=== PATIENT | female | born 1980 | race Hispanic/Latino ===

== ENCOUNTER 2024-02-12 10:59 | Emergency (ER) | payer BC ==
[2024-02-12] MEDS ORDERED: DIPHENHYDRAMINE 50 MG/ML VIAL ONE (11:43)
[2024-02-12] MEDS ORDERED: METOCLOPRAMIDE 10 MG/2mL INJ ONE (11:43)
[2024-02-12] MEDS ORDERED: NA CHLORIDE 0.9% 500 ML ONE (11:43)
[2024-02-12 12:10] LABS: Absolute Monocytes 0.5 K/uL (0.1-1.3); Absolute Neutrophil 7.9 K/uL (1.8-8.0); Basophils % 0.3 % (0-1.3); Eosinophils % 0.4 % (0-4.4); Hematocrit 35.9 % (36.0-45.0); Hemoglobin 11.7 g/dL (12.0-15.0); Lymphocytes % 10.9 % (15.3-44.8); MCHC 32.6 g/dL (32.0-36.0); MCV 79.7 fL (80-100); MPV 7.3 fL (7.6-11.3); Monocytes % 5.7 % (3.3-12.3); Neutrophils % 82.7 % (41.7-73.7); Platelets 322 thou/uL (152-406); Red Cell Distribution Width 15.9 % (12.1-15.2)
[2024-02-12 12:27] LABS: Anion Gap 8.9 mEq/L (5.0-15.0); BUN Blood Urea Nitrogen 11 mg/dL (7-18); Bicarbonate 26 mEq/L (21-32); Glomerular Filtration Rate 81 ml/min (=/>90); Glucose Level 113 mg/dL (74-106); Potassium 3.9 mEq/L (3.5-5.1); Sodium Level 139 mEq/L (136-145)
[2024-02-12 12:28] LABS: Troponin High Sensitivity < 3.0 pg/mL (<58.9)
--- NOTE | 2024-02-12 12:51 | EDPHYS ---
Physician Documentation [facility] Name: Valentina Rendon Age: 43 yrs Sex: Female : 1980 Arrival Date: 02/12/2024 Time: 10:59 Bed 19 Private MD: ED Physician Tera Junior HPI: 02/11 11:56 This 43 yrs old Unknown Female presents to ER via Ambulatory with complaints of ec2 Dizziness, Nausea. 11:56 Patient arrives today for several days of dizziness. Patient reports that she has been ec2 experiencing vertigo, history of vertigo, has been taking meclizine with minimal improvement in symptoms. Patient reports of associated nausea as well. No falls injuries or trauma. No significant medical problems.. 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 - Infectious Disease History:: Denies. - Social history:: Smoking status: unknown. ROS: 11:56 Constitutional: as per hpi ec2 Exam: 11:56 Constitutional: GEN: NAD Head: atraumatic Eyes: EOMI Ears: External ears are ec2 normal. CV: regular rate LUNGS: no respiratory distress ABD: non-distended SKIN: no evidence of rashes MSK: no evidence of trauma. Neuro: Cranial nerves II through XII intact, strength intact upper extremity Vital Signs: 11:25 BP 116 / 91; Pulse 86; Resp 16; Temp 97.6(O); Pulse Ox 99% on R/A; Weight 64.41 kg; cm10 Height 5 ft. 3 in. ; Pain 0/10; 11:55 BP 115 / 81; Pulse 74; Resp 17; Pulse Ox 99% on R/A; rs5 13:10 BP 118 / 84; Pulse 74; Resp 17; Pulse Ox 99% on R/A; rs5 11:25 Body Mass Index 25.15 (64.41 kg, 160.02 cm) cm10 11:25 Pain Scale: Adult cm10 MDM: 11:31 Medical Screening Exam initiated ec2 11:56 Data reviewed: vital signs, nurses notes. ED course: EKG independently reviewed and ec2 interpreted by me, shows normal sinus rhythm, rate 65, no acute ST segment elevations, intervals are nonactionable.. 11:56 ED course: Patient arrives today for dizziness. Examination shows reassuring neurologic ec2 examination. Will obtain lab work, treat the patient symptoms and reassess. Differential includes vertigo, doubt central vertigo, doubt intracranial mass, doubt brain bleed given lack of mechanism and lack of focal neurodeficits. 12:44 ED course: Metabolic profile unrevealing, troponin is undetectable. CBC reassuring.. ec2 12:50 ED course: On reassessment patient with marked improvement in symptoms. Will discharge ec2 home have the patient follow-up PCP and neurology. Return precautions given. Suspect peripheral vertigo.. 11 11:31 Order name: Basic Metabolic Panel; Complete Time: 12:44 ec2 02/11 11:31 Order name: CBC with Diff; Complete Time: 12:14 ec2 02/11 11:31 Order name: Troponin HS; Complete Time: 12:44 ec2 02/11 11:31 Order name: Cardiac monitoring; Complete Time: 12:10 ec2 02/11 11:31 Order name: EKG - Nurse/Tech; Complete Time: 12:13 ec2 02/11 11:31 Order name: IV Saline Lock; Complete Time: 12:04 ec2 02/11 11:31 Order name: Labs collected and sent; Complete Time: 12:04 ec2 02/11 11:31 Order name: O2 Per Protocol; Complete Time: 12:10 ec2 02/11 11:31 Order name: O2 Sat Monitoring; Complete Time: 12:10 ec2 Administered Medications: 11:40 Drug: metoCLOPramide IVP 10 mg IVP once; over 1 to 2 minutes Route: IVP; Site: right rs5 antecubital; 12:01 Follow up: Response: No adverse reaction; Nausea is decreased rs5 11:40 Drug: diphenhydrAMINE IVP 25 mg IVP once Route: IVP; Site: right antecubital; rs5 12:05 Follow up: Response: No adverse reaction; Nausea is decreased rs5 11:40 Drug: NS 0.9% IV 500 ml IV at bolus once; to be given as a bolus over 30 minutes Route: rs5 IV; Rate: bolus; Site: right antecubital; 12:01 Follow up: Response: No adverse reaction rs5 Disposition Summary: 11/24/24 12:50 Discharge Ordered Notes: Location: Home ec2 Condition: Stable ec2 Diagnosis - Other peripheral vertigo ec2 Followup: ec2 - With: Private Physician - When: - Reason: Re-evaluation by your physician Discharge Instructions: - Discharge Summary Sheet ec2 - Vertigo, Iudc-ne-Gotc ec2 Forms: - Work release form rs5 - Medication Reconciliation Form ec2 - Antibiotic Education ec2 - Prescription Opioid Use ec2 - Patient Portal Instructions ec2 - Leadership Thank You Letter ec2 Prescriptions: - Reglan 10 mg Oral Tablet - take 1 tablet ORAL route every 6 hours . take 30 minutes before meals and at ec2 bedtime; 100 tablet; Refills: 0, Product Selection Permitted Signatures: Dispatcher [employer] Dwight Smith RN RN rs5 Paige Shah RN RN cm10 Tera Junior MD MD ec2 Corrections: (The following items were deleted from the chart) 11:31 11:31 BASIC METABOLIC PANEL+C.LAB.BRZ ordered. EDMS EDMS 11:31 11:31 CBC+H.LAB.BRZ ordered. EDMS EDMS 11:31 11:31 Troponin High Sensitivity+C.LAB.BRZ ordered. EDMS EDMS
--- NOTE | 2024-02-12 12:51 | ER ---
Nurse's Notes [facility] Name: Valentina Rendon Age: 43 yrs Sex: Female : 1980 Arrival Date: 02/12/2024 Time: 10:59 Bed 19 Private MD: Diagnosis: Other peripheral vertigo Presentation: 02/11 11:25 Chief complaint: Patient states: Dizziness with vomiting onset Tuesday. Pt states that cm10 she has a history of vertigo and has taken Meclizine with no relief. Coronavirus screen: Client denies travel out of the [place] in the last 14 days. Ebola Screen: Patient denies travel to an Ebola-affected area in the 21 days before illness onset. No symptoms or risks identified at this time. Initial Sepsis Screen: Does the patient meet any 2 criteria? No. Patient's initial sepsis screen is negative. Does the patient have a suspected source of infection? No. Patient's initial sepsis screen is negative. Risk Assessment: Do you want to hurt yourself or someone else? Patient reports no desire to harm self or others. Onset of symptoms was February 12, 2024. 11:25 Method Of Arrival: Ambulatory cm10 11:25 Acuity: GALLO 3 cm10 Triage Assessment: 11:26 General: Appears in no apparent distress. uncomfortable, Behavior is calm, cooperative. cm10 Neuro: No deficits noted. Level of Consciousness is awake, alert, obeys commands, Oriented to person, place, time, situation, Appropriate for age Reports dizziness. Respiratory: No deficits noted. Airway is patent Respiratory effort is even, unlabored, Respiratory pattern is regular, symmetrical. Musculoskeletal: Range of motion: intact in all extremities. 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 - Infectious Disease History:: Denies. - Social history:: Smoking status: unknown. Screenin:30 [facility] ED Fall Risk Assessment (Adult) History of falling in the last 3 months, rs5 including since admission No falls in past 3 months (0 pts) Confusion or Disorientation No (0 pts) Intoxicated or Sedated No (0 pts) Impaired Gait No (0 pts) Mobility Assist Device Used No (0 pt) Altered Elimination No (0 pt) Score/Fall Risk Level 0 - 2 = Low Risk Oriented to surroundings, Maintained a safe environment. 11:30 Abuse screen: Denies threats or abuse. Nutritional screening: No deficits noted. rs5 Tuberculosis screening: No symptoms or risk factors identified. Assessment: 11:30 General: Appears in no apparent distress. uncomfortable, Behavior is calm, cooperative. rs5 Pain: Denies pain. Neuro: Level of Consciousness is awake, alert, obeys commands, Oriented to person, place, time, situation. Neuro: Reports dizziness. Cardiovascular: Patient's skin is warm and dry. Respiratory: Airway is patent Respiratory effort is even, unlabored, Respiratory pattern is regular, symmetrical. GI: Abdomen is round non-distended, Abd is soft and non tender X 4 quads. Reports nausea. : No signs and/or symptoms were reported regarding the genitourinary system. EENT: No signs and/or symptoms were reported regarding the EENT system. Derm: Skin is intact, Skin is pink, warm \T\ dry. Musculoskeletal: Range of motion: intact in all extremities. 12:35 Reassessment: Patient and/or family updated on plan of care and expected duration. Pain rs5 level reassessed. Patient is alert, oriented x 3, equal unlabored respirations, skin warm/dry/pink. 13:15 Reassessment: Patient and/or family updated on plan of care and expected duration. Pain rs5 level reassessed. Patient is alert, oriented x 3, equal unlabored respirations, skin warm/dry/pink. Vital Signs: 11:25 BP 116 / 91; Pulse 86; Resp 16; Temp 97.6(O); Pulse Ox 99% on R/A; Weight 64.41 kg; cm10 Height 5 ft. 3 in. ; Pain 0/10; 11:55 BP 115 / 81; Pulse 74; Resp 17; Pulse Ox 99% on R/A; rs5 13:10 BP 118 / 84; Pulse 74; Resp 17; Pulse Ox 99% on R/A; rs5 11:25 Body Mass Index 25.15 (64.41 kg, 160.02 cm) cm10 11:25 Pain Scale: Adult cm10 ED Course: 11:01 Patient arrived in ED. mg5 11:06 Tera Junior MD is Attending Physician. ec2 11:26 Triage completed. cm10 11:26 Arm band placed on right wrist. Patient placed in an exam room, on a stretcher. cm10 11:30 Patient has correct armband on for positive identification. Placed in gown. Bed in low rs5 position. Call light in reach. Side rails up X2. 11:30 No provider procedures requiring assistance completed. rs5 11:36 Dwight Glover, RN is Primary Nurse. rs5 12:05 Inserted saline lock: 20 gauge in right antecubital area, using aseptic technique. am7 Flushed with 10 mL NS. 12:10 Client placed on continuous cardiac and pulse oximetry monitoring. NIBP monitoring am7 applied. marine engineer cpvec on. 12:11 Warm blanket given. am7 13:10 Provided Education on: discharge instructions . rs5 13:14 IV discontinued, intact, bleeding controlled, No redness/swelling at site. Pressure rs5 dressing applied. Administered Medications: 11:40 Drug: metoCLOPramide IVP 10 mg IVP once; over 1 to 2 minutes Route: IVP; Site: right rs5 antecubital; 12:01 Follow up: Response: No adverse reaction; Nausea is decreased rs5 11:40 Drug: diphenhydrAMINE IVP 25 mg IVP once Route: IVP; Site: right antecubital; rs5 12:05 Follow up: Response: No adverse reaction; Nausea is decreased rs5 11:40 Drug: NS 0.9% IV 500 ml IV at bolus once; to be given as a bolus over 30 minutes Route: rs5 IV; Rate: bolus; Site: right antecubital; 12:01 Follow up: Response: No adverse reaction rs5 Medication: 12:01 VIS not applicable for this client. rs5 Outcome: 12:50 Discharge ordered by . ec2 13:14 Discharged to home ambulatory, rs5 13:14 Condition: stable rs5 13:14 Discharge instructions given to patient, family, Instructed on discharge instructions, follow up and referral plans. medication usage, Demonstrated understanding of instructions, follow-up care, medications, Prescriptions given X 2, 13:15 Patient left the ED. rs5 Signatures: Dwight Glover RN RN rs5 Paige Shah RN RN cm10 Angela Pack mg5 Tera Junior MD MD ec2 [place]air[place], [place] am7
[2024-02-12 14:38] VITALS: BP 116/91; TEMP 97.6; O2SAT 99
--- NOTE | 2024-02-15 11:42 | EKG ---
Test Date: 2024-02-12 Test Time: 11:51:54 Tool Maker Apprentice: PRABHJOT MEASUREMENT RESULTS: Intervals: Rate: 65 WI: 152 QRSD: 86 QT: 404 QTc: 420 [place]: P: 65 WI: 152 QRS: 73 T: 46 INTERPRETIVE STATEMENTS: Normal sinus rhythm Normal ECG No previous ECG available for comparison Electronically Signed On 02-15-24 11:35:19 TRANSIT DEPARTMENT CLERK by Jameson Payton
== END 2024-02-12 13:15 | disposition home or self-care (01) ==
LOC: ER 10:59
DX: H81.399 Other peripheral vertigo, unspecified ear (principal)
CPT/HCPCS: 85025; 80048; 36415; 84484; 96375; 96374; 99285; J2765; J1200; J7040; 93005

== ENCOUNTER 2024-02-28 13:17 | Emergency (ER) | payer BC, SELFPAY ==
--- NOTE | 2024-02-28 14:12 | RAD REPORT ---
EXAMINATION: CT CERVICAL SPINE WITHOUT CONTRAST HISTORY: left shoulder pain COMPARISON: None TECHNIQUE: Multiple contiguous axial images were obtained in a CT of the cervical spine without IV co ntrast. Sagittal and coronal reformats were performed. One or more of the following dose reduction techniques were used: Automated exposure control, adjustment of the mA and kV according to patient si ze, and iterative reconstruction. Unless otherwise specified, incidental findings do not require dedicated imaging follow-up. FINDINGS: The vertebral bodies and intervertebral discs demonstrate normal height and alignment without fractu re or subluxation. No significant degenerative changes are present. No prevertebral soft tissue swelling is seen. The posterior facets are well aligned. Normal alignment of the skull base with the cervical spine is seen. The odontoid appears normal and the lateral masses are symmetric. The lung apices are unremarkable. IMPRESSION: No evidence of acute osseous abnormality of the cervical spine.
--- NOTE | 2024-02-28 14:28 | RAD REPORT ---
EXAMINATION: XR LEFT SHOULDER CLINICAL INDICATION: Female, 43 years old. PAIN TECHNIQUE: Multiple views of the left shoulder were obtained. COMPARISON: No prior exam. FINDINGS: No evidence of fracture or dislocation. Normal alignment. No evidence of arthropathy or oth er focal bone lesion. Soft tissues are unremarkable. IMPRESSION: No significant bone or joint abnormalities.
--- NOTE | 2024-02-28 14:50 | RAD REPORT ---
EXAMINATION: US LEFT UPPER EXTREMITY VENOUS DOPPLER CLINICAL INDICATION: PAIN TECHNIQUE: Complete bilateral duplex sonography of the LEFT upper extremity veins was performed. The examination included compression for vein patency, color Doppler imaging and flow augmentation in response to distal compression of the internal jugular, brachiocephalic, subclavian, axillary, brachi al, radial, ulnar, cephalic and basilic veins. COMPARISON: No prior exam. FINDINGS: Duplex sonography testing of the veins of the LEFT upper extremity was performed. Color flow imaging shows all veins to be compressible with [id number] color filling. Pulsatile and phasic flow is present within all upper extremity deep and superficial veins examined. IMPRESSION: There is no deep vein or superficial vein thrombosis.
[2024-02-28] MEDS ORDERED: KETOROLAC 30 MG/ML INJ ONE (15:08)
[2024-02-28] MEDS ORDERED: dexAMETHasone 10 MG/ML VIAL ONE (15:08)
[2024-02-28] MEDS ORDERED: CYCLOBENZAPRINE 10 MG TAB ONE (15:09)
--- NOTE | 2024-02-28 15:28 | ER ---
Nurse's Notes [facility] Name: Valentina Rendon Age: 43 yrs Sex: Female : 1980 Arrival Date: 02/28/2024 Time: 13:17 Bed DX3 Private MD: Diagnosis: Pain in left shoulder Presentation: 02/27 13:48 Chief complaint: Patient states: left shoulder pain onset Tuesday. pt states that she cm10 woke up with the pain. no trauma or injury. Coronavirus screen: Client denies travel out of the [place] in the last 14 days. Ebola Screen: Patient denies travel to an Ebola-affected area in the 21 days before illness onset. No symptoms or risks identified at this time. Initial Sepsis Screen: Does the patient meet any 2 criteria? No. Patient's initial sepsis screen is negative. Does the patient have a suspected source of infection? No. Patient's initial sepsis screen is negative. Risk Assessment: Do you want to hurt yourself or someone else? Patient reports no desire to harm self or others. Onset of symptoms was February 26, 2024. 13:48 Method Of Arrival: Ambulatory cm10 13:48 Acuity: GALLO 4 cm10 Triage Assessment: 13:49 General: Appears in no apparent distress. uncomfortable, Behavior is calm, cooperative. cm10 Pain: Complains of pain in posterior aspect of left shoulder Pain currently is 9 out of 10 on a pain scale. Neuro: No deficits noted. Level of Consciousness is awake, alert, obeys commands, Oriented to person, place, time, situation, Appropriate for age. Respiratory: No deficits noted. Airway is patent Respiratory effort is even, unlabored, Respiratory pattern is regular, symmetrical. Musculoskeletal: No deficits noted. Reports pain in left arm. 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 - Infectious Disease History:: Denies. - Social history:: Smoking status: Patient denies any tobacco usage or history of. Screenin:54 Abuse screen: Denies threats or abuse. Denies injuries from another. Nutritional ss screening: No deficits noted. Tuberculosis screening: Never had TB. Assessment: 15:54 Reassessment: Patient appears in no apparent distress at this time. feeling better ss after medication administration Patient states feeling better. Vital Signs: 13:48 BP 114 / 84; Pulse 86; Resp 18; Temp 98.3(TE); Pulse Ox 98% on R/A; Weight 64.86 kg; cm10 Height 5 ft. 3 in. ; Pain 9/10; 13:48 Body Mass Index 25.33 (64.86 kg, 160.02 cm) cm10 13:48 Pain Scale: Adult cm10 ED Course: 13:18 Patient arrived in ED. ra3 13:20 Yusra Campuzano PA-C is PHCP. sb4 13:20 Stevie Herrera DO is Attending Physician. sb4 13:49 Triage completed. cm10 13:49 Arm band placed on right wrist. Patient placed in waiting room. cm10 14:05 CT C Spine In Process Unspecified. EDMS 14:13 Shoulder Left (2 View) XRAY In Process Unspecified. EDMS 14:43 UPPER EXTREMITY VENOUS UNILATE In Process Unspecified. EDMS 15:27 Timothy Ennis MD is Referral Physician. sb4 15:54 Patient has correct armband on for positive identification. Bed in low position. ss 15:54 No provider procedures requiring assistance completed. Patient did not have IV access ss during this emergency room visit. 15:58 Shoulder immobilizer applied on left shoulder. ss Administered Medications: 15:16 Drug: Ketorolac IM 30 mg IM once Route: IM; Site: right gluteus; cm10 15:36 Follow up: Response: No adverse reaction ss 15:16 Drug: Dexamethasone IM 10 mg IM once Route: IM; Site: left gluteus; cm10 15:36 Follow up: Response: No adverse reaction ss 15:16 Drug: Cyclobenzaprine PO 10 mg PO once Route: PO; cm10 15:36 Follow up: Response: No adverse reaction ss Medication: 15:54 VIS not applicable for this client. ss Outcome: 15:27 Discharge ordered by . sb4 15:54 Discharged to home ambulatory, ss 15:54 Condition: good 15:54 Instructed on discharge instructions, follow up and referral plans. medication usage, Demonstrated understanding of instructions, follow-up care, medications, Prescriptions given X 3, 15:58 Patient left the ED. ss Signatures: Dispatcher [employer] EDJody Vaughn, RN RN Yusra [place], ALLIE KELLEY sb4 Paige Shah RN RN cm10 Agnieszka Gamez 3
--- NOTE | 2024-02-28 15:28 | EDPHYS ---
Physician Documentation [facility] Name: Valentina Rendon Age: 43 yrs Sex: Female : 1980 Arrival Date: 02/28/2024 Time: 13:17 Bed DX3 Private MD: ED Physician Stevie Herrera HPI: 02/27 13:53 This 43 yrs old Female presents to ER via Ambulatory with complaints of sb4 Shoulder Pain - Left. 13:53 The patient or guardian complains of decreased range of motion, pain, that is acute. sb4 left shoulder. Context: resulted from an unknown reason, The patient experiences decreased range of motion, when rotates arm, The patient reports no obvious deformity. Onset: The symptoms/episode began/occurred 2 day(s) ago. Modifying factors: the symptoms are alleviated by remaining still, The symptoms are aggravated by lifting weight, movement, rotation of arm. Treatment prior to arrival includes: over the counter medications, NSAIDS. The patient has not experienced similar symptoms in the past. The patient has not recently seen a physician. 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 - Infectious Disease History:: Denies. - Social history:: Smoking status: Patient denies any tobacco usage or history of. ROS: 13:54 Constitutional: Negative for fever, chills, and weight loss, sb4 13:54 MS/extremity: Positive for decreased range of motion, laceration, of the left shoulder, 13:54 All other systems are negative, Exam: 13:54 Constitutional: The patient appears alert, awake, uncomfortable, sb4 13:54 Musculoskeletal/extremity: Circulation is intact in all extremities. Pulses: are normal with no appreciated deficits, Sensation intact. Joints: the left shoulder displays limited range of motion, pain at rest, painful range of motion, tenderness, DVT Exam: no swelling, negative Homans' sign noted on exam, no appreciated bluish discoloration, no erythema, pain, tenderness, increased warmth, 15:27 Head/Face: Normocephalic, atraumatic. Respiratory: No increased work of breathing, no sb4 retractions or nasal flaring. Skin: Warm, dry with normal turgor. Normal color with no rashes, no lesions, and no evidence of cellulitis. Vital Signs: 13:48 BP 114 / 84; Pulse 86; Resp 18; Temp 98.3(TE); Pulse Ox 98% on R/A; Weight 64.86 kg; cm10 Height 5 ft. 3 in. ; Pain 910; 13:48 Body Mass Index 25.33 (64.86 kg, 160.02 cm) cm10 13:48 Pain Scale: Adult cm10 MDM: 13:53 Medical Screening Exam initiated sb4 13:56 Differential diagnosis: DJD, tendonitis, DVT. sb4 15:10 Data reviewed: vital signs, nurses notes, radiologic studies, and as a result, I will sb4 discharge patient. Counseling: I had a detailed discussion with the patient and/or guardian regarding the historical points, exam findings, and any diagnostic results supporting the discharge/admit diagnosis, radiology results, the need for outpatient follow up, a orthopedic surgeon, to return to the emergency department if symptoms worsen or persist or if there are any questions or concerns that arise at home. 02/27 13:53 Order name: CT C Spine; Complete Time: 14:15 sb4 02/27 13:53 Order name: Shoulder Left (2 View) XRAY; Complete Time: 14:30 sb4 02/27 14:01 Order name: UPPER EXTREMITY VENOUS UNILATE; Complete Time: 14:51 EDMS Administered Medications: 15:16 Drug: Ketorolac IM 30 mg IM once Route: IM; Site: right gluteus; cm10 15:36 Follow up: Response: No adverse reaction ss 15:16 Drug: Dexamethasone IM 10 mg IM once Route: IM; Site: left gluteus; cm10 15:36 Follow up: Response: No adverse reaction ss 15:16 Drug: Cyclobenzaprine PO 10 mg PO once Route: PO; cm10 15:36 Follow up: Response: No adverse reaction ss Disposition: 16:11 I was immediately available on-site in the Emergency Department for consultation in the ms3 care of the patient. Disposition Summary: 02/28/24 15:27 Discharge Ordered Notes: Location: Home sb4 Problem: new sb4 Symptoms: have improved sb4 Condition: Stable sb4 Diagnosis - Pain in left shoulder sb4 Followup: sb4 - With: Timothy Ennis MD - When: As needed - Reason: Further diagnostic work-up, Recheck today's complaints, Re-evaluation by your physician Discharge Instructions: - Discharge Summary Sheet sb4 - Shoulder Pain sb4 - Adhesive Capsulitis sb4 Forms: - Work release form sb4 - Family Work Release sb4 - Patient Portal Instructions sb4 - Leadership Thank You Letter sb4 Prescriptions: - meloxicam 7.5 mg Oral tablet - take 1 tablet ORAL route daily; 10 tablet; Refills: 0, Product Selection sb4 Permitted - Prednisone 20 mg Oral Tablet - take 1 tablet ORAL route once daily for 5 days; 5 tablet; Refills: 0, Product sb4 Selection Permitted - Cyclobenzaprine 5 mg Oral Tablet - take 1 tablet ORAL route 3 times per day As needed; 15 tablet; Refills: 0, sb4 Product Selection Permitted Signatures: Dispatcher [employer] EDMS Stevie Herrera DO DO ms3 Yusra Campuzano PA-C PA-C sb4 Paige Shah, RN RN cm10 Jody Davidson RN ss Corrections: (The following items were deleted from the chart) 13:56 13:56 Extremity Venous Uni Ltd+US.RAD.BRZ ordered. EDMS EDMS
[2024-02-28 16:05] VITALS: BP 114/84; TEMP 98.3; O2SAT 98
== END 2024-02-28 15:58 | disposition home or self-care (01) ==
LOC: ER 13:17
DX: M25.512 Pain in left shoulder (principal)
CPT/HCPCS: 72125; 73030; 93971; 96372; 99284; J1100